=== PATIENT | male | born 1995 | race Asian ===

== ENCOUNTER 2025-07-23 13:07 | Emergency (ER) | payer OTHER, SELFPAY ==
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
== END 2025-07-23 14:30 | disposition home or self-care (01) ==
LOC: ANHED 14:31
PROVIDERS: Emergency Provider Emergency Medicine
DX: S30.811A Abrasion of abdominal wall, initial encounter (principal); V43.52XA Car driver injured in collision with other type car in traffic accident, initial encounter
CPT/HCPCS: 99283